=== PATIENT | female | born 1955 | race Caucasian/White ===

== ENCOUNTER 2016-07-19 06:55 | Day surgery (SDC) | payer BC ==
[~2016-07-19] VITALS: Ht 160 cm; Wt 89.9 kg
[~2016-07-19 06:55] MED LIST: HYDR-3498 PO; HYDR12.58 PO; IBUP-1542 PO; ONDA4TAB35 PO
[2016-07-19 07:50] VITALS: Ht 160 cm; Wt 89.9 kg
[2016-07-19 08:14] VITALS: BP 160/76; PULSE 70; RESP 19
[2016-07-19] MEDS ORDERED: LIDOCAINE 2% (SDV) 5 ML INJ ONE (08:27)
[2016-07-19] MEDS ORDERED: PROPOFOL 40 ML ONE (08:27)
[2016-07-19] MEDS ORDERED: PROPOFOL 20 ML ONE (09:56)
[2016-07-19 10:05] VITALS: BP 153/65; PULSE 68; RESP 18
[2016-07-19 10:56] VITALS: BP 115/68; PULSE 68; RESP 18
--- NOTE | 2016-07-19 11:55 | GILP ---
DATE OF PROCEDURE: NAME OF PROCEDURES: Colonoscopy, biopsy and polypectomy. SURGEON: Ezio Orellana MD PREOPERATIVE DIAGNOSIS: Screening colonoscopy. POSTOPERATIVE DIAGNOSES 1. Colonoscopy all the way to the cecum. 2. Three flat polyps in the right colon, one of them was removed using the snare and electrocautery , the other 2 with biopsy forceps. 3. Small sigmoid colon polyp was removed using the biopsy forceps. 4. Internal hemorrhoids. INDICATION FOR THE PROCEDURE: Ms. Mirtha Weir is a 61-year-old female patient who was scheduled for screening colonoscopy. The procedure and possible complications were well explained to the patient. She understood and cons ented to the procedure. DESCRIPTION OF PROCEDURE: Under the influence of anesthesia, the colonoscope was carefully introduc ed in the rectum and under direct vision, it was advanced all the way to the cecum. FINDINGS: The patient had 3 flat polyps in the right colon, one of them was removed using the snare and electrocautery and the other 2 with the biopsy forceps. She also had a small sigmoid colon payam yp and it was removed using the biopsy forceps. She had internal hemorrhoids. She tolerated the procedure very well and there was no complication from the procedure. At the end of the procedures, she was awake with stable vital signs and she was discharged home to the care of her family. IMPRESSION: 1. Colonoscopy all the way to the cecum. 2. Three flat right colon polyps were removed using the snare and electrocautery as well as biopsy forceps. 3. Small sigmoid colon polyp was removed using the biopsy forceps. 4. Internal hemorrhoids. PLAN: 1. Await histopathology report. 2. Linzess 290 mcg p.o. daily a.m. before breakfast for constipation. 3. The patient will need followup colonoscopy in 3 years. Dictated By: EZIO GOTTI/RONNY Conf#: [id number] DID#: [id number]
== END 2016-07-19 11:14 | disposition home or self-care (01) ==
LOC: GIL 06:55
PROVIDERS: ATTEND Internal Medicine Gastroenterology
DX: Z12.11 Encounter for screening for malignant neoplasm of colon (principal); D12.2 Benign neoplasm of ascending colon; K63.5 Polyp of colon; K64.8 Other hemorrhoids; I10 Essential (primary) hypertension; E66.9 Obesity, unspecified; Z68.35 Body mass index [BMI] 35.0-35.9, adult

== ENCOUNTER 2016-12-13 21:47 | Emergency (ER) | payer BC ==
[~2016-12-13] VITALS: Wt 94.0 kg
[~2016-12-13 21:47] MED LIST changes: -HYDR-3498 PO; -IBUP-1542 PO; -ONDA4TAB35 PO
[2016-12-14] MEDS ORDERED: HYDROCODONE/APAP (5/325) TAB PO ONE (00:30)
[2016-12-14 00:54] LABS: URINE BLOOD (Dip) POC Trace-lysed (NEGATIVE)
--- NOTE | 2016-12-14 01:02 | RADRPT ---
PROCEDURE: CT Brain without contrast. CLINICAL INDICATION: Headache. TECHNIQUE: Serial axial computed tomographic images of the brain was performed on a CT scanner fro m the skull base through the vertex without contrast. Sagittal and coronal reconstruction images wer e produced. Exam CTDlvol = 45 mGy and DLP = 720 mGy-cm. One of the following 3 dose reduction tech niques were used: Automated exposure control; adjustment of the mA and/or kV according to patient si ze; or use of iterative reconstruction technique. COMPARISON: None available FINDINGS: The ventricles and sulci are normal in size and configuration. There is no midline shift. There ar e no focal parenchymal abnormalities. There is no acute stroke. No acute intracranial hemorrhage o r abnormal extra-axial fluid collection. No fracture identified. Visualized paranasal sinuses are clear. IMPRESSION: 1. No acute intracranial abnormality. RPTAT: HMVK .Kevin Reynolds MD, Date Time Electronically viewed and signed by .Kevin Reynolds MD, on 12/14/2016 01:02 .K/
--- NOTE | 2016-12-14 01:14 | ERD ---
ER Documentation Chief Complaint Date/Time DATE: 12/14/16 TIME: 01:13 Chief Complaint ARANDA x6 months. PMD wants her to get a CT scan HPI This 61-year-old female who presents the emergency department today complaining of intermittent headache for the past 6 months. Patient states the headaches have become more frequently in the last week she has had a headache every day. She states that she used to take Tylenol her for headaches and the headaches improve after 40 minutes however they are becoming more persistent at this time. States she also tried Excedrin. States she also has some nausea. States she saw her primary care doctor and he wants to maybe get her a scan of her head but was worried that it was going to "cause cancer". States that she currently has a history of breast mass and also had a recent colonoscopy that showed polyps. States she does have a history of high blood pressure and takes 12.5 mg of hydrochlorothiazide. Denies any fevers or chills, blurred vision,, light sensitivity ROS All systems reviewed and are negative except as per history of present illness. Medications Home Meds Active Scripts Hydrochlorothiazide* (Hydrochlorothiazide*) 25 Mg Tab, 25 MG PO DAILY, #30 TAB Prov:SHERRY FALL PA-C 12/14/16 Amlodipine Besylate* (Norvasc*) 5 Mg Tablet, 5 MG PO DAILY, #30 TAB Prov:SHERRY FALL PA-C 12/14/16 Naproxen* (Naprosyn*) 500 Mg Tablet, 500 MG PO BID Y for PAIN AND/OR INFLAMMATION, #30 TAB Prov:SHERRY FALL PA-C 12/14/16 Hydrocodone/Acetaminophen (Ashley 5-325 Tablet) 1 Each Tablet, 1 TAB PO Q6H Y for PAIN, #12 TAB Prov:SHERRY FALL PA-C 12/14/16 Reported Medications Hydrochlorothiazide* (Hydrochlorothiazide*) 12.5 Mg Tablet, 12.5 MG PO DAILY, TAB 12/15/14 Allergies Allergies: Coded Allergies: No Known Drug Allergies (Verified Allergy, Mild, 07/19/16) PMhx/Soc History of Surgery: Yes (RT. BREAST CLIP PLACED, FIBROIDS REMOVED, HYSTERECTOMY , CHOLECYSTECTOMY) Anesthesia Reaction: No Hx Neurological Disorder: No Hx Respiratory Disorders: No Hx Cardiac Disorders: No Hx Psychiatric Problems: No Hx Miscellaneous Medical Probl: Yes (HTN, OBESITY) Hx Alcohol Use: No Hx Substance Use: No Hx Tobacco Use: Yes Smoking Status: Current every day smoker Physical Exam Vitals Vital Signs Date Time Temp Pulse Resp B/P Pulse Ox O2 Delivery O2 Flow Rate FiO2 12/14/16 02:11 66 172/80 12/13/16 21:57 99.0 66 20 179/83 97 Physical Exam Const: No acute distress Head: Atraumatic Eyes: Normal Conjunctiva. PERRLA. EOM intact. ENT: Normal External Ears, Nose and Mouth. Neck: Full range of motion..~ No meningismus. Resp: Clear to auscultation bilaterally Cardio: Regular rate and rhythm, no murmurs Abd: Soft, non tender, non distended. Normal bowel sounds Skin: No petechiae or rashes Ext: No cyanosis, or edema Neur: Awake and alert. Cranial nerves II through XII intact. No gait ataxia. Psych: Normal Mood and Affect Results 24 hrs Laboratory Tests Test 12/14/16 00:59 Bedside Urine pH (LAB) 5.5 Bedside Urine Protein (LAB) Negative Bedside Urine Glucose (UA) Negative Bedside Urine Ketones (LAB) Negative Bedside Urine Blood Trace-lysed Bedside Urine Nitrite (LAB) Negative Bedside Urine Leukocyte Esterase (L Negative Current Medications Medications (Trade) Dose Ordered Sig/Gregg Route PRN Reason Start Time Stop Time Status Last Admin Dose Admin Acetaminophen/ Hydrocodone Bitart (Ashley (5/325)) 1 tab ONCE ONCE PO 12/14/16 00:30 12/14/16 00:31 DC 12/14/16 00:51 DIAGNOSTIC IMAGING REPORT Patient: ARIAN MICHEL : 1955 Age: 61 Sex: F MR #: [id number] DOS: 12/14/16 0000 Ordering MD: SHERRY FALL PA-C Location: [facility] Room/Bed: PROCEDURE: CT Brain without contrast. CLINICAL INDICATION: Headache. TECHNIQUE: Serial axial computed tomographic images of the brain was performed on a CT scanner from the skull base through the vertex without contrast. Sagittal and coronal reconstruction images were produced. Exam CTDlvol = 45 mGy and DLP = 720 mGy-cm. One of the following 3 dose reduction techniques were used: Automated exposure control; adjustment of the mA and/or kV according to patient size; or use of iterative reconstruction technique. COMPARISON: None available FINDINGS: The ventricles and sulci are normal in size and configuration. There is no midline shift. There are no focal parenchymal abnormalities. There is no acute stroke. No acute intracranial hemorrhage or abnormal extra-axial fluid collection. No fracture identified. Visualized paranasal sinuses are clear. IMPRESSION: 1. No acute intracranial abnormality. RPTAT: HMVK .Kevin Reynolds MD, MD Date Time Electronically viewed and signed by .Kevin Reynolds MD, MD on 12/14/2016 01:02 .K/ CC: SHERRY FALL PA-C Procedures/MDM This is a 61-year-old female who presents to the emergency department today complaining of intermittent headaches for the past 6 months. Given patient's age and complaints of persistent headaches and increasing frequency of headaches that did obtain a head CT scan. UA is negative for infection Head CT noncontrast shows no acute intracranial abnormality. There is no midline shift. There is no acute stroke. No acute intracranial hemorrhage or fluid collection. There is no fracture. Patient symptoms at this time is consistent with headache possibly migraine type headaches versus headaches secondary to hypertension. Low suspicion for hypertensive emergency. Patient was given Ashley here in the emergency department and pain improved to a 5 out of 10. She was offered Toradol however declined at that time. Patient's blood pressure was elevated at intake at 179/83. Upon recheck patient 's blood pressure was 196/80 in her right arm and 172/80 in her left arm. Patient does take a very low dose of 12.5 mg of HCTZ. I discussed the patient with Dr. Blair and he has recommended Norvasc 5 mg and 25 mg HCTZ. This was prescribed to the patient. I did explain to the patient that she needed to follow-up with her primary care doctor about her blood pressure as we would not be managing her medications here in the emergency department. Patient understood. Patient was also instructed to follow-up with a neurology specialist and get referral from her primary care doctor. I did also give the patient a list of referral information. Patient was given a prescription for Ashley, Naprosyn for home. At this time the patient is stable for discharge and outpatient management. Patient should follow up with their PCP in the next 1-2 days. They may return to the emergency department sooner for any persistent or worsening of symptoms. Patient understood and agreed with the plan. Departure Diagnosis: Primary Impression: Headache Headache type: unspecified Headache chronicity pattern: episodic headache Intractability: not intractable Qualified Code: R51 - Nonintractable episodic headache, unspecified headache type Condition: SHERRY Kinght PA-C Dec 14, 2016 01:14
[2016-12-14] MEDS ORDERED: HYDR-906 PO (01:31)
[2016-12-14] MEDS ORDERED: NAPR-260 PO (01:32)
[2016-12-14] MEDS ORDERED: HYD25 PO (01:33)
[2016-12-14] MEDS ORDERED: AMLO5TAB4 PO (01:33)
[2016-12-14 02:11] VITALS: BP 172/80; PULSE 66
== END 2016-12-14 02:11 | disposition home or self-care (01) ==
LOC: FTE 21:47
DX: R51 Headache (principal); I10 Essential (primary) hypertension; F17.210 Nicotine dependence, cigarettes, uncomplicated; E66.9 Obesity, unspecified
CPT/HCPCS: 70450; 81003

== ENCOUNTER 2017-01-17 16:23 | Emergency (ER) | payer BC ==
[~2017-01-17] VITALS: Ht 160 cm; Wt 92.5 kg
[~2017-01-17 16:23] MED LIST changes: +AMLO5TAB4 PO; +HYD25 PO; +HYDR-906 PO; +NAPR-260 PO
[2017-01-17 16:27] VITALS: Ht 160 cm; Wt 92.5 kg
--- NOTE | 2017-01-17 19:40 | ERA ---
ER Documentation Chief Complaint Date/Time DATE: 01/17/17 TIME: 19:39 Chief Complaint HEART PALPITATION;PRESSURE LIKE CHEST PAIN,FEELS NAUSEOUS;EASY FATIGABILITY HPI 61-year-old female with history of hypertension ambulatory to the emergency department complaining of chest pain or palpitations since yesterday. She has had similar symptoms intermittently for 1 year. She describes the chest pain as vague, diffuse intermittently sharp and pressure-like, nonradiating accompanied by palpitations with nausea but no shortness of breath or diaphoresis. Sometimes feels nauseated but no vomiting. Symptoms occur sometimes several times a day she has been with the symptoms have been increasing in frequency of the last 2 months. Easy fatigability but denies PND , orthopnea or exertional dyspnea. No headache, neck or back pain. No syncope , visual changes, focal weakness or numbness. Denies abdominal pain or back pain. No fevers or chills. ROS All systems reviewed and are negative except as per history of present illness. Medications Home Meds Active Scripts Metoprolol Succinate* (Toprol XL*) 25 Mg Tab.sr.24h, 12.5 MG PO DAILY, #15 TAB Prov:BRONWYN LOBATO MD 01/17/17 Hydrochlorothiazide* (Hydrochlorothiazide*) 25 Mg Tab, 25 MG PO DAILY, #30 TAB Prov:SHERRY FALL PA-C 12/14/16 Amlodipine Besylate* (Norvasc*) 5 Mg Tablet, 5 MG PO DAILY, #30 TAB Prov:SHERRY FALL PA-C 12/14/16 Discontinued Reported Medications Hydrochlorothiazide* (Hydrochlorothiazide*) 12.5 Mg Tablet, 12.5 MG PO DAILY, TAB 12/15/14 Discontinued Scripts Naproxen* (Naprosyn*) 500 Mg Tablet, 500 MG PO BID Y for PAIN AND/OR INFLAMMATION, #30 TAB Prov:SHERRY FALL PA-C 12/14/16 Hydrocodone/Acetaminophen ([place] 5-325 Tablet) 1 Each Tablet, 1 TAB PO Q6H Y for PAIN, #12 TAB Prov:SHERRY FALL PA-C 12/14/16 Allergies Allergies: Coded Allergies: No Known Drug Allergies (Unverified Allergy, Unknown, 01/18/17) PMhx/Soc Reviewed in chart. As per HPI. History of Surgery: Yes ( R Breast Clip Placed,Fibroids Removed,Hysterectomy, Cholecystectomy) Anesthesia Reaction: No Hx Neurological Disorder: No Hx Respiratory Disorders: No Hx Cardiac Disorders: Yes (HTN) Hx Psychiatric Problems: No Hx Miscellaneous Medical Probl: Yes (Obesity) Hx Alcohol Use: No Hx Substance Use: No Hx Tobacco Use: Yes Smoking Status: Former smoker FmHx No sudden cardiac , stroke or diabetes Physical Exam Vitals Vital Signs Date Time Temp Pulse Resp B/P Pulse Ox O2 Delivery O2 Flow Rate FiO2 01/17/17 22:34 98.3 66 20 148/77 99 01/17/17 21:34 98.3 70 20 162/85 97 01/17/17 20:00 98.3 67 19 148/90 96 01/17/17 16:27 98.3 74 19 133/68 95 Physical Exam Const: Alert, anxious, no acute distress. Head: Atraumatic Eyes: Normal Conjunctiva ENT: Normal External Ears, Nose and Mouth. Neck: Full range of motion. No JVD. Nontender. Resp: Clear to auscultation bilaterally Cardio: Regular rate and rhythm, no murmurs Abd: Soft, non tender, non distended. Normal bowel sounds Skin: No petechiae or rashes Back: No midline or flank tenderness Ext: No cyanosis, or edema Neur: Awake and alert Psych: Anxious but not depressed. Result Diagram: 01/17/17194901/17/171949 Results 24 hrs Laboratory Tests Test 01/17/17 19:50 White Blood Count 7.310^3/ul Red Blood Count 4.3510^6/ul Hemoglobin 13.0g/dl Hematocrit 38.7% Mean Corpuscular Volume 89.0fl Mean Corpuscular Hemoglobin 29.9pg Mean Corpuscular Hemoglobin Concent 33.6g/dl Red Cell Distribution Width 13.2% Platelet Count 73344^3/UL Mean Platelet Volume 11.7fl Neutrophils % 53.1% Lymphocytes % 36.8% Monocytes % 7.7% Eosinophils % 1.4% Basophils % 0.7% Nucleated Red Blood Cells % 0.0/100WBC Neutrophils # 3.910^3/ul Lymphocytes # 2.710^3/ul Monocytes # 0.610^3/ul Eosinophils # 0.110^3/ul Basophils # 0.110^3/ul Nucleated Red Blood Cells # 0.010^3/ul Sodium Level 139mmol/L Potassium Level 5.2mmol/L Chloride Level 103mmol/L Carbon Dioxide Level 29mmol/L Anion Gap 12 Blood Urea Nitrogen 22mg/dl Creatinine 0.81mg/dl Glucose Level 90mg/dl Calcium Level 9.7mg/dl Magnesium Level 2.0mg/dl Total Bilirubin 0.4mg/dl Direct Bilirubin 0.00mg/dl Indirect Bilirubin 0.4mg/dl Aspartate Amino Transf (AST/SGOT) 50IU/L Alanine Aminotransferase (ALT/SGPT) 24IU/L Alkaline Phosphatase 109IU/L Troponin I < 0.012ng/ml Total Protein 8.6g/dl Albumin 4.7g/dl Globulin 3.90g/dl Albumin/Globulin Ratio 1.20 Thyroid Stimulating Hormone (TSH) 3.250MIU/L MR #: [id number] DOS: 01/17/171936 Ordering MD: BRONWYN LOBATO MD Location: E/R Room/Bed: PROCEDURE: XR Chest. CLINICAL INDICATION: Chest Pain. TECHNIQUE: Single frontal view of the chest was obtained. COMPARISON: 11/03/2014 FINDINGS: The cardiomediastinal silhouette is borderline enlarged. Vasculature is prominent and indistinct. There is atelectasis at the lung bases.. . No signs of pleural fluid or pneumothorax are seen. The osseous structures and soft tissues are unremarkable. IMPRESSION: 1. Mild appearing cardiomegaly and possible mild pulmonary edema. Hypoventilatory examination. 2. Bibasilar atelectasis. RPTAT: HBST .Jt Siegel MD, MD Date Time Electronically viewed and signed by .Jt Siegel MD, on 01/17/2017 20:28 .T/ EKG: Time:16:33. Sinus rhythm. Ventricular rate 79. Frequent PVCs. Voltage criteria for LVH. No acute ST segment elevation or depression. EP interpretation: Abnormal ECG. EKG: Time: 20:08. Sinus rhythm. Ventricular rate 67. Occasional PVCs. No acute ST segment elevation or depression. Normal MI QRS. EP interpretation: Abnormal ECG. Procedures/MDM DOCUMENTS REVIEWED: ED nurse prior records REEXAMINATION/REEVALUATION: Time: 20:30. Doing well. No chest pain. Sinus rhythm without ectopy. Time: 21: 45. Asymptomatic. Sinus rhythm without ectopy. No chest pain. Time: 23:30. Doing well. No chest pain or shortness of breath. Sinus rhythm with rare PVCs. MEDICAL DECISION MAKIN-year-old female with history of hypertension ambulatory to the emergency department complaining of chest pain or palpitations since yesterday. She has had similar symptoms intermittently worsening for a year and is actually been seen in the ED multiple times dating back to 2010 for chest pain. On arrival patient was symptomatic and found to have frequent PVCs but this resolved and she has since been asymptomatic. No ischemic EKG changes, elevated troponin or other signs of acute coronary syndrome. Heart score 0. Low risk for pulmonary embolism. Other etiologies including but not limited to aortic dissection are unlikely. No radiographic evidence of pneumonia or pneumothorax. Chest x-ray reveals cardiomegaly. Patient has no symptoms of congestive heart failure. Borderline hyperkalemia of uncertain etiology as her creatinine is normal. Only taking hydrochlorothiazide and not Norvasc. TSH normal. Stable for discharge on a low- dose of beta-jean-pierre and will need urgent outpatient follow-up within the next 24-48 hours with cardiology for further risk stratification, echocardiogram and evaluation of dysrhythmia. Counseled patient regarding diagnosis, diagnostic results and plan for Discharge and need for urgent outpatient follow-up. Observation Note: Time: For hours Family Hx: No Hypertension Evaluation: Multiple exams showed improving symptoms and no evidence of acute coronary syndrome. Departure Diagnosis: Primary Impression: Chest pain with low risk of acute coronary syndrome Additional Impressions: Palpitations Symptomatic PVCs Condition: Stable (with mandatory, urgent outpatient followup as counseled.) BRONWYN LOBATO MD Jan 17, 2017 19:40
[2017-01-17 20:18] LABS: BASOPHIL # 0.1 10^3/ul (0.0-0.1); BASOPHILS % 0.7 % (0.0-2.0); EOSINOPHILS # 0.1 10^3/ul (0.0-0.5); EOSINOPHILS % 1.4 % (0.0-7.0); HEMATOCRIT 38.7 % (37.0-47.0); LYMPHOCYTES # 2.7 10^3/ul (0.8-2.9); LYMPHOCYTES % 36.8 % (15.0-51.0); MEAN CORPUSCULAR HEMOGLOBIN 29.9 pg (29.0-33.0); MEAN CORPUSCULAR HGB CONC 33.6 g/dl (32.0-37.0); MEAN PLATELET VOLUME 11.7 fl (7.4-10.4); MONOCYTE # 0.6 10^3/ul (0.3-0.9); MONOCYTES % 7.7 % (0.0-11.0); NEUTROPHIL # 3.9 10^3/ul (1.6-7.5); NEUTROPHILS % 53.1 % (39.0-77.0); PLATELET COUNT 307 10^3/UL (140-415); RED BLOOD COUNT 4.35 10^6/ul (4.20-5.40); RED CELL DISTRIBUTION WIDTH 13.2 % (11.5-14.5); WHITE BLOOD COUNT 7.3 10^3/ul (4.8-10.8)
--- NOTE | 2017-01-17 20:29 | RADRPT ---
PROCEDURE: XR Chest. CLINICAL INDICATION: Chest Pain. TECHNIQUE: Single frontal view of the chest was obtained. COMPARISON: 11/03/2014 FINDINGS: The cardiomediastinal silhouette is borderline enlarged. Vasculature is prominent and indistinct. T here is atelectasis at the lung bases.. . No signs of pleural fluid or pneumothorax are seen. The osseous structures and soft tissues are unre markable. IMPRESSION: 1. Mild appearing cardiomegaly and possible mild pulmonary edema. Hypoventilatory examination. 2. Bibasilar atelectasis. RPTAT: HBST .Jt Siegel MD, MD Date Time Electronically viewed and signed by .Jt Siegel MD, on 01/17/2017 20:28 .T/
[2017-01-17 20:46] LABS: ALANINE AMINOTRANSFERASE 24 IU/L (13-69); ALBUMIN 4.7 g/dl (3.3-4.9); ALKALINE PHOSPHATASE 109 IU/L (42-121); ANION GAP 12 (8-16); ASPARTATE AMINO TRANSFERASE 50 IU/L (15-46); BILIRUBIN,INDIRECT 0.4 mg/dl (0-1.1); BILIRUBIN,TOTAL 0.4 mg/dl (0.2-1.3); BLOOD UREA NITROGEN 22 mg/dl (7-20); CALCIUM 9.7 mg/dl (8.4-10.2); CARBON DIOXIDE 29 mmol/L (21-31); CHLORIDE 103 mmol/L (97-110); CREATININE 0.81 mg/dl (0.44-1.00); GLUCOSE 90 mg/dl (70-220); POTASSIUM 5.2 mmol/L (3.5-5.1); SODIUM 139 mmol/L (135-144); TOTAL PROTEIN 8.6 g/dl (6.1-8.1)
[2017-01-17 21:00] LABS: TROPONIN-I < 0.012 ng/ml (0.00-0.12)
[2017-01-17 22:34] VITALS: BP 148/77; PULSE 66; RESP 20; TEMP 98.3
[2017-01-17] MEDS ORDERED: METO25TA7 PO (23:57)
== END 2017-01-18 00:18 | disposition home or self-care (01) ==
LOC: FTE 16:23 → E/R 01-18 00:18
DX: R07.9 Chest pain, unspecified (principal); I49.3 Ventricular premature depolarization; I10 Essential (primary) hypertension; E66.9 Obesity, unspecified; Z68.36 Body mass index [BMI] 36.0-36.9, adult; Z87.891 Personal history of nicotine dependence
CPT/HCPCS: 36415; 71010; 80053; 83735; 84443; 84484; 85025; 93005

== ENCOUNTER 2018-05-02 14:27 | Emergency (ER) | END 2018-05-02 16:58 | disposition home or self-care (01) ==